=== PATIENT | female | born 1950 | race Caucasian/White ===

== ENCOUNTER 2022-02-01 09:05 | Outpatient (CLI) | payer MEDICARE | END 2022-02-01 09:06 | disposition home or self-care (01) | LOC: CSHCP 09:05 | PROVIDERS: ATTEND Family Medicine | DX: R06.02 Shortness of breath (principal); M16.11 Unilateral primary osteoarthritis, right hip | CPT/HCPCS: 94060; 94726; 94729; 94760 ==